=== PATIENT | female | born 1940 | race Caucasian/White ===

== ENCOUNTER 2022-11-01 01:45 | Emergency (ER) | payer MEDICARE ==
[~2022-11-01] VITALS: Ht 160 cm; Wt 59.0 kg
[~2022-11-01 01:45] MED LIST: ZESTRIL20 MG PO
[2022-11-01] MEDS ORDERED: METOPROLOL SUCC25 MG PO (02:09)
--- NOTE | 2022-11-03 19:01 | EKG ---
[facility] [address] [facility] [place] [address] Signed Sinus tachycardia Possible Left atrial enlargement Left axis deviation Septal infarct (cited on or before 01-NOV-2022) T wave abnormality, consider anterolateral ischemia Abnormal ECG When compared with ECG of 01-NOV-2022 03:07, (Unconfirmed) premature atrial complexes are no longer present Confirmed by BENJAMIN CORBIN MD ([id number]) on 11/03/2022 7:01:15 PM Electronically Signed By: BENJAMIN CORBIN MD 11/03/221900 PATIENT NAME: BEV SINGH Electrocardiogram DATE OF : 44 PHYSICIAN: BENJAMIN CORBIN MD REPORT #: [id number] REPORT IS CONFIDENTIAL AND NOT TO BE RELEASED WITHOUT AUTHORIZATION
--- NOTE | 2022-11-03 19:01 | EKG ---
[facility] [address] [facility] [place] [address] Signed Sinus tachycardia Possible Left atrial enlargement Left axis deviation Septal infarct , age undetermined ST \T\ T wave abnormality, consider lateral ischemia Abnormal ECG When compared with ECG of 25-JUL-2022 10:38, Vent. rate has increased BY 42 BPM Questionable change in QRS duration Septal infarct is now present Confirmed by BENJAMIN CORBIN MD ([id number]) on 11/03/2022 7:00:55 PM Electronically Signed By: BENJAMIN CORBIN MD 11/03/221900 PATIENT NAME: BEV SINGH Electrocardiogram DATE OF : 44 PHYSICIAN: BENJAMIN CORBIN MD REPORT #: [id number] REPORT IS CONFIDENTIAL AND NOT TO BE RELEASED WITHOUT AUTHORIZATION
--- NOTE | 2022-11-03 19:01 | EKG ---
[facility] [address] [facility] [place] [address] Signed Sinus rhythm with premature atrial complexes Left axis deviation Septal infarct (cited on or before 01-NOV-2022) T wave abnormality, consider anterolateral ischemia Abnormal ECG When compared with ECG of 01-NOV-2022 01:51, (Unconfirmed) premature atrial complexes are now present Serial changes of evolving Septal infarct present Confirmed by BENJAMIN CORBIN MD ([id number]) on 11/03/2022 7:00:59 PM Electronically Signed By: BENJAMIN CORBIN MD 11/03/221900 PATIENT NAME: BEV SINGH Electrocardiogram DATE OF : 44 PHYSICIAN: BENJAMIN CORBIN MD REPORT #: [id number] REPORT IS CONFIDENTIAL AND NOT TO BE RELEASED WITHOUT AUTHORIZATION
== END 2022-11-01 14:34 | disposition short-term general hospital (02) ==
LOC: ED 01:45
DX: I21.4 Non-ST elevation (NSTEMI) myocardial infarction (principal); I10 Essential (primary) hypertension; Z20.822 Contact with and (suspected) exposure to COVID-19; Z88.5 Allergy status to narcotic agent; Z79.899 Other long term (current) drug therapy
CPT/HCPCS: 36415; 71045; 80053; 83735; 83880; 84484; 85025; 85379; 87502; 93005; 93010; 94640; 96365; 96366; 96375; 99285-25; A9270; C9803; J1644; J7040; U0003

== ENCOUNTER 2022-11-29 17:45 | Emergency (ER) | payer MEDICARE ==
[~2022-11-29] VITALS: Ht 160 cm; Wt 59.0 kg
[~2022-11-29 17:45] MED LIST changes: +METOPROLOL SUCC25 MG PO
--- OUTSIDE RECORDS SUMMARY | 2022-11-29 17:48 | XMS ---
PreManage Notification: BEV SINGH Security Cloth [employer] Events No recent Security Events currently on file CRITERIA MET - [facility] - 2 Visits in 30 Days CARE PROVIDERS There are no care providers on record at this time. [place] has no Care Guidelines for this patient. [facility] NOTE: Visits indicate total known visits. ED/C VISIT TRACKING (12 MO.) [facility] COMPLAINT: - CHEST PAIN 11/01/2022 01:45 [facility] TYPE: Emergency COMPLAINT: - CHEST PAIN DIAGNOSES: - Other jail (current) drug therapy - Essential (primary) hypertension - Contact with and (suspected) exposure to COVID-19 - Allergy status to narcotic agent - Non-ST elevation (NSTEMI) myocardial infarction - Precordial pain 07/25/2022 10:41 [facility] TYPE: Emergency COMPLAINT: - CHEST PAIN DIAGNOSES: - Nicotine dependence, cigarettes, uncomplicated - Other jail (current) drug therapy - Chest pain, unspecified - Allergy status to narcotic agent - Other chest pain INPATIENT VISIT TRACKING (12 MO.) 11/01/2022 18:11 [facility] TYPE: General Medicine COMPLAINT: - NSTEMI DIAGNOSES: - Unstable angina - Non-ST elevation (NSTEMI) myocardial infarction - Unspecified systolic (congestive) heart failure [email or web address]
[2022-11-29] MEDS ORDERED: ATORVASTATIN CA40 MG PO (18:00)
[2022-11-29] MEDS ORDERED: COLCHICINE0.6 M1 PO (18:00)
[2022-11-29] MEDS ORDERED: FAMOTIDINE20 MG PO (18:01)
[2022-11-29] MEDS ORDERED: HYDRALAZINE HCL50 MG PO (18:01)
[2022-11-29] MEDS ORDERED: FUROSEMIDE40 MG PO (18:01)
[2022-11-29] MEDS ORDERED: HYDROCODON-ACE1 EA10 PO (18:01)
[2022-11-29] MEDS ORDERED: ELIQUIS2.5 MG PO (18:02)
[2022-11-29] MEDS ORDERED: ISOSORBIDE MONO30 MG PO (18:02)
[2022-11-29] MEDS ORDERED: POTASSIUM CHLO20 ME2 PO (18:02)
--- NOTE | 2022-11-30 07:47 | EKG ---
[facility] [address] [facility] [place], [place] [address] Signed Atrial flutter with variable AV block ST \T\ T wave abnormality, consider anterolateral ischemia Abnormal ECG No previous ECGs available Confirmed by MEMA CAGLE MD ([id number]) on 11/30/2022 7:47:12 AM Electronically Signed By: EMMA CAGLE MD 11/30/22 0747 PATIENT NAME: BEV SINGH Electrocardiogram DATE OF : 44 PHYSICIAN: EMMA CAGLE MD REPORT #: [id number] REPORT IS CONFIDENTIAL AND NOT TO BE RELEASED WITHOUT AUTHORIZATION
--- NOTE | 2022-11-30 07:48 | EKG ---
[facility] [address] [facility] [place] [address] Signed Sinus rhythm with marked sinus arrhythmia ST \T\ T wave abnormality, consider anterolateral ischemia Abnormal ECG When compared with ECG of 29-NOV-2022 17:52, (Unconfirmed) Significant changes have occurred Confirmed by EMMA CAGLE MD ([id number]) on 11/30/2022 7:47:52 AM Electronically Signed By: EMMA CAGLE MD 11/30/22 0748 PATIENT NAME: BEV SINGH Electrocardiogram DATE OF : 44 PHYSICIAN: EMMA CAGLE MD REPORT #: [id number] REPORT IS CONFIDENTIAL AND NOT TO BE RELEASED WITHOUT AUTHORIZATION
== END 2022-11-30 03:37 | disposition short-term general hospital (02) ==
LOC: ED 17:45
DX: I21.4 Non-ST elevation (NSTEMI) myocardial infarction (principal); I10 Essential (primary) hypertension; Z88.5 Allergy status to narcotic agent; Z79.899 Other long term (current) drug therapy; Z20.822 Contact with and (suspected) exposure to COVID-19
CPT/HCPCS: 36415; 71045; 80053; 83735; 83880; 84484; 85025; 85610; 85730; 87502; 93005; 93010; 96365; 96366; 96375; 96376; 99285-25; A9270; C9803; J1644; J2270; J2405; J3480; U0003